=== PATIENT | female | born 1960 | race Caucasian/White ===

== ENCOUNTER 2024-04-07 08:33 | Observation (INO) | payer MEDICARE ==
--- NOTE | 2024-04-07 09:09 | ED ---
General Adult HPI - General Chief complaint: Chest Pain Stated complaint: chest pain Time Seen by Provider: 04/07/24 08:35 Source: patient, RN notes reviewed, old records reviewed Mode of arrival: ambulatory Limitations: no limitations - History of Present Illness Initial comments: This is a 63-year-old female who presents to the emergency department with a past medical history significant for anxiety. Patient states today she was driving down the highway and she had some pain going down her left arm she became a little short of breath which she attributes to her anxiety. Patient also states she started having some chest pressure that lasted less than a minute. Patient states the chest pressure seems to come and go. Patient states that the chest pain does seem to radiate to her back. Patient states that she does have back pain normally. Patient also states she was mildly nauseous. Patient denies any chest pain currently she denies shortness of breath and states that this happened to her a few years back and they determined it was an xiety. Patient denies any history of high blood pressure or smoking. Patient does have a history of diabetes and high cholesterol and does have a very strong family history with her father having from heart attack at 53. Patient states she has been under quite a bit of stress over the last 2 weeks because of the in the family. - Related Data Allergies Allergy/AdvReac Type Severity Reaction Status Date / Time pollen extracts Allergy Wheezing Verified 04/07/24 08:38 Review of Systems ROS Statement: Those systems with pertinent positive or pertinent negative responses have been documented in the HPI. ROS Other: All systems not noted in ROS Statement are negative. Past Medical History Past Medical History: Asthma, Diabetes Mellitus Past Surgical History: No Surgical Hx Reported Past Psychological History: Anxiety, Depression Smoking Status: Never smoker Past Alcohol Use History: Occasional Past Drug Use History: Marijuana General Exam - General Exam Comments Initial Comments: GENERAL: Patient is well-developed and well-nourished. Patient is nontoxic and well- hydrated and is in mild distress. ENT: Neck is soft and supple. No significant lymphadenopathy is noted. Oropharynx is clear. Moist mucous membranes. Neck has full range of motion without eliciting any pain. EYES: The sclera were anicteric and conjunctiva were pink and moist. Extraocular movements were intact and pupils were equal round and reactive to light. Eyelids were unremarkable. PULMONARY: Unlabored respirations. Good breath sounds bilaterally. No audible rales rhonchi or wheezing was noted. CARDIOVASCULAR: There is a regular rate and rhythm without any murmurs gallops or rubs. ABDOMEN: Soft and nontender with normal bowel sounds. SKIN: Skin is clear with no lesions or rashes and otherwise unremarkable. NEUROLOGIC: Patient is alert and oriented x3. Cranial nerves II through XII are grossly intact. Motor and sensory are also intact. Normal speech, volume and content. Symmetrical smile. MUSCULOSKELETAL: Normal extremities with adequate strength and full range of motion. LYMPHATICS: No significant lymphadenopathy is noted PSYCHIATRIC: Normal psychiatric evaluation. Limitations: no limitations Course Vital Signs 04/07/24 04/07/24 08:34 10:23 Temperature 98.0 F Pulse Rate 75 73 Respiratory 20 18 Rate Blood Pressure 148/96 124/72 O2 Sat by Pulse 95 Oximetry Medical Decision Making - Medical Decision Making EKG is interpreted by myself but EKG shows a sinus rhythm at 67 bpm parables 140 QRS is 100 QT interval 387 QTc is 403. Patient's EKG shows no ST segment ovation or depression. Was pt. sent in by a medical professional or institution (, PA, PHP CONSULTANT, urgent care, hospital, or correction...) When possible be specific @ -No Did you speak to anyone other than the patient for history (EMS, parent, family, police, friend...)? What history was obtained from this source @ -No Did you review nursing and triage notes (agree or disagree)? Why? @ -I reviewed and agree with nursing and triage notes Were old charts reviewed (outside hosp., previous admission, EMS record, old EKG, old radiological studies, urgent care reports/EKG's, correction records)? Report findings @ -No old charts were reviewed Differential Diagnosis? @ -Differential Chest Pain: Stable Angina, Unstable Angina, STEMI, NSTEMI Aortic Dissection, Pneumothorax, Musculoskeletal, Esophageal Spasm GERD, Cholecystitis, Pancreatitis, Zoster, this is not meant to be an all-inclusive list. EKG interpreted by me (3pts min.). @ -As above X-rays interpreted by me (1pt min.). @ -Chest x-ray shows no acute abnormality CT interpreted by me (1pt min.). @ -None done U/S interpreted by me (1pt. min.). @ -None done What testing was considered but not performed or refused? (CT, X-rays, U/S, labs)? Why? @ -None What meds were considered but not given or refused? Why? @ -None Did you discuss the management of the patient with other professionals (professionals i.e. , PA, PHP CONSULTANT, lab, RT, psych nurse, sexual assault social worker, windows server specialist, teacher, hospital chief financial officer, upper caser)? Give summary @ -[facility] the patient admit the patient wrote admitting orders Was smoking cessation discussed for >3mins.? @ -No Was critical care preformed (if so, how long)? @ -No Were there social determinants of health that impacted care today? How? (Homelessness, low income, unemployed, alcoholism, drug addiction, transportation, low edu. Level, literacy, decrease access to med. care, residential, rehab)? @ -No Was there de-escalation of care discussed even if they declined (Discuss DNR or withdrawal of care, Hospice)? DNR status @ -No What co-morbidities impacted this encounter? (DM, HTN, Smoking, COPD, CAD, Cancer, CVA, ARF, Chemo, Hep., AIDS, mental health diagnosis, sleep apnea, morbid obesity)? @ -Diabetes mellitus Was patient admitted / discharged? Hospital course, mention meds given and route, prescriptions, significant lab abnormalities, going to OR and other pertinent info. @ -Patient's arm pain went away in the emergency department. But with patient's risk factors for high cholesterol diabetes and family history with the patient's current symptoms I felt it prudent to keep the patient in the hospital. [facility] the patient admit the patient wrote admitting orders I consulted cardiology Undiagnosed new problem with uncertain prognosis? @ -No Drug Therapy requiring intensive monitoring for toxicity (Heparin, Nitro, Insulin, Cardizem)? @ -No Were any procedures done? @ -No Diagnosis/symptom? @ -Chest pain Acute, or Chronic, or Acute on Chronic? @ -Acute Uncomplicated (without systemic symptoms) or Complicated (systemic symptoms)? @ -Complicated Side effects of treatment? @ -No Exacerbation, Progression, or Severe Exacerbation? @ -No Poses a threat to life or bodily function? How? (Chest pain, USA, ND, pneumonia, PE, COPD, DKA, ARF, appy, cholecystitis, CVA, Diverticulitis, Homicidal, Suicidal, threat to staff... and all critical care pts) @ -Yes this could lead to an ND and endorgan dysfunction - Lab Data Result diagrams: 04/07/24 09:29 04/07/24 09:29 Lab Results 04/07/24 04/07/24 04/07/24 Range/Units 09:29 09:29 09:29 WBC 6.5 (3.8-10.6) k/uL RBC 5.03 (3.80-5.40) m/uL Hgb 14.8 (11.4-16.0) gm/dL Hct 43.8 (34.0-46.0) % MCV 87.1 (80.0-100.0) fL MCH 29.4 (25.0-35.0) pg MCHC 33.8 (31.0-37.0) g/dL RDW 14.5 (11.5-15.5) % Plt Count 216 (150-450) k/uL MPV 8.7 Neutrophils % 67 % Lymphocytes % 24 % Monocytes % 5 % Eosinophils % 3 % Basophils % 1 % Neutrophils # 4.3 (1.3-7.7) k/uL Lymphocytes # 1.5 (1.0-4.8) k/uL Monocytes # 0.3 (0-1.0) k/uL Eosinophils # 0.2 (0-0.7) k/uL Basophils # 0.0 (0-0.2) k/uL PT 9.9 L (10.0-12.5) sec INR 0.9 (<1.2) APTT 22.7 (22.0-30.0) sec Sodium 138 (137-145) mmol/L Potassium 4.5 (3.5-5.1) mmol/L Chloride 107 (98-107) mmol/L Carbon Dioxide 18 L (22-30) mmol/L Anion Gap 13 mmol/L BUN 22 H (7-17) mg/dL Creatinine 0.64 (0.52-1.04) mg/dL Est GFR (CKD-EPI)AfAm >90 (>60 ml/min/1.73 sqM) Est GFR (CKD-EPI)NonAf >90 (>60 ml/min/1.73 sqM) Glucose 264 H (74-99) mg/dL Calcium 9.7 (8.4-10.2) mg/dL Magnesium 1.8 (1.6-2.3) mg/dL Total Bilirubin 0.6 (0.2-1.3) mg/dL AST 22 (14-36) U/L ALT 20 (4-34) U/L Alkaline Phosphatase 76 (38-126) U/L Troponin I (0.000-0.034) ng/mL Total Protein 6.7 (6.3-8.2) g/dL Albumin 4.1 (3.5-5.0) g/dL 04/07/24 Range/Units 09:29 WBC (3.8-10.6) k/uL RBC (3.80-5.40) m/uL Hgb (11.4-16.0) gm/dL Hct (34.0-46.0) % MCV (80.0-100.0) fL MCH (25.0-35.0) pg MCHC (31.0-37.0) g/dL RDW (11.5-15.5) % Plt Count (150-450) k/uL MPV Neutrophils % % Lymphocytes % % Monocytes % % Eosinophils % % Basophils % % Neutrophils # (1.3-7.7) k/uL Lymphocytes # (1.0-4.8) k/uL Monocytes # (0-1.0) k/uL Eosinophils # (0-0.7) k/uL Basophils # (0-0.2) k/uL PT (10.0-12.5) sec INR (<1.2) APTT (22.0-30.0) sec Sodium (137-145) mmol/L Potassium (3.5-5.1) mmol/L Chloride (98-107) mmol/L Carbon Dioxide (22-30) mmol/L Anion Gap mmol/L BUN (7-17) mg/dL Creatinine (0.52-1.04) mg/dL Est GFR (CKD-EPI)AfAm (>60 ml/min/1.73 sqM) Est GFR (CKD-EPI)NonAf (>60 ml/min/1.73 sqM) Glucose (74-99) mg/dL Calcium (8.4-10.2) mg/dL Magnesium (1.6-2.3) mg/dL Total Bilirubin (0.2-1.3) mg/dL AST (14-36) U/L ALT (4-34) U/L Alkaline Phosphatase (38-126) U/L Troponin I <0.012 (0.000-0.034) ng/mL Total Protein (6.3-8.2) g/dL Albumin (3.5-5.0) g/dL Disposition Clinical Impression: Chest pain Disposition: ADMITTED IP TO THIS HOSP Referrals: Nonstaff,Physician [Primary Care Provider] - 1-2 days Time of Disposition: 10:33
[2024-04-07] MEDS: LORazepam 2 MG/ML INJ IV STA (09:37)
[2024-04-07 09:39] LABS: Basophils % (A) 1 %; Eosinophils # (A) 0.2 k/uL (0-0.7); Eosinophils % (A) 3 %; HCT 43.8 % (34.0-46.0); HGB 14.8 gm/dL (11.4-16.0); Lymphocytes # (A) 1.5 k/uL (1.0-4.8); Lymphocytes % (A) 24 %; MCH 29.4 pg (25.0-35.0); MCHC 33.8 g/dL (31.0-37.0); MCV 87.1 fL (80.0-100.0); Mean Platelet Volume 8.7; Monocytes # (A) 0.3 k/uL (0-1.0); Monocytes % (A) 5 %; Neutrophils # (A) 4.3 k/uL (1.3-7.7); Neutrophils % (A) 67 %; Platelet Count 216 k/uL (150-450); RBC 5.03 m/uL (3.80-5.40); RDW 14.5 % (11.5-15.5); WBC 6.5 k/uL (3.8-10.6)
[2024-04-07 09:48] LABS: INR 0.9 (<1.2); Partial Thromboplastin Time 22.7 sec (22.0-30.0); Prothrombin Time 9.9 sec (10.0-12.5)
[2024-04-07 09:50] LABS: ALT 20 U/L (4-34); AST 22 U/L (14-36); African American GFR (CKD) >90 (>60 ml/min/1.73 sqM); Albumin 4.1 g/dL (3.5-5.0); Alkaline Phosphatase 76 U/L (38-126); Anion Gap 13 mmol/L; Blood Urea Nitrogen 22 mg/dL (7-17); Calcium 9.7 mg/dL (8.4-10.2); Carbon Dioxide 18 mmol/L (22-30); Chloride 107 mmol/L (98-107); Glucose 264 mg/dL (74-99); Magnesium 1.8 mg/dL (1.6-2.3); Non-African American GFR(CKD) >90 (>60 ml/min/1.73 sqM); Potassium 4.5 mmol/L (3.5-5.1); Sodium 138 mmol/L (137-145); Total Bilirubin 0.6 mg/dL (0.2-1.3); Total Protein 6.7 g/dL (6.3-8.2)
--- NOTE | 2024-04-07 09:55 | XR ---
EXAMINATION TYPE: XR chest 2V DATE OF EXAM: 04/07/2024 COMPARISON: NONE HISTORY: Shortness of breath TECHNIQUE: Frontal and lateral views of the chest are obtained. FINDINGS: Scattered senescent parenchymal changes noted. No evidence for infiltrate. No evidence for atelectasis. Heart size is stable. Mediastinal structures are stable and grossly unremarkable. No evidence for hilar prominence. Degenerative changes dorsal spine. IMPRESSION: 1. No evidence for acute pulmonary disease.
[2024-04-07] MEDS ORDERED: NITROGLYCERIN SL TABS 0.4 MG TAB SUBLINGUAL PRN (10:33)
--- NOTE | 2024-04-07 12:10 | P.HPIM ---
History of Present Illness This is a pleasant 63 years old female with past medical history of asthma and diabetes mellitus anxiety and depression Presents because of chest pain radiating to her left arm and back started this morning about 8/10 in severity, currently completely resolved 0//explain [facility] like current a pinched nerve No precipitating factors but Ativan received in emergency room help to take it away She denies any change in urine or bowel habits. No fever or chills. No headache dizziness weakness numbness Patient denies smoking cigarettes, she drinks alcohol about 3 times per week and she smokes marijuana twice per month Patient is hemodynamically stable She has unremarkable CBC, BMP liver enzymes Troponin is negative less than 0.012. Chest x-ray is negative for acute process EKG showing sinus rhythm at [address]-T changes Review of Systems Review of systems CONSTITUTIONAL: No fever, no malaise, no fatigue. HEENT: No recent visual problems or hearing problems. Denied any sore throat. CARDIOVASCULAR: No orthopnea, PND, no palpitations, no syncope. PULMONARY: No shortness of breath, no cough, no hemoptysis. GASTROINTESTINAL: No diarrhea, no nausea, no vomiting, no abdominal pain. Normoactive bowel sounds. NEUROLOGICAL: No headaches, no weakness, no numbness. HEMATOLOGICAL: Denies any bleeding or petechiae. GENITOURINARY: Denies any burning micturition, frequency, or urgency. MUSCULOSKELETAL/RHEUMATOLOGICAL: Denies any joint pain, swelling, or any muscle pain. ENDOCRINE: Denies any polyuria or polydipsia. Past Medical History Past Medical History: Asthma, Diabetes Mellitus Past Surgical History: No Surgical Hx Reported Past Psychological History: Anxiety, Depression Smoking Status: Never smoker Past Alcohol Use History: Occasional Past Drug Use History: Marijuana Medications and Allergies Home Medications Medication Instructions Recorded Confirmed Type Dapagliflozin Propanediol [Farxiga] 10 mg PO DAILY 04/07/24 04/07/24 History Meloxicam [Mobic] 15 mg PO DAILY 04/07/24 04/07/24 History Montelukast [Singulair] 10 mg PO DAILY 04/07/24 04/07/24 History Rosuvastatin Calcium [Crestor] 5 mg PO DAILY 04/07/24 04/07/24 History Sertraline [Zoloft] 100 mg PO DAILY 04/07/24 04/07/24 History Allergies Allergy/AdvReac Type Severity Reaction Status Date / Time pollen extracts Allergy Wheezing Verified 04/07/24 11:22 Physical Exam Vitals: Vital Signs Temp Pulse Resp BP Pulse Ox 04/07/24 10:23 73 18 124/72 04/07/24 08:34 98.0 F 75 20 148/96 95 Intake and Output 04/06/24 04/07/24 04/07/24 22:59 06:59 14:59 Other: Weight 122.47 kg GENERAL: The patient is alert and oriented x3, not in any acute distress. Well developed, well nourished. HEENT: Pupils are round and equally reacting to light. EOMI. No scleral icterus. No conjunctival pallor. Normocephalic, atraumatic. No pharyngeal erythema. No thyromegaly. CARDIOVASCULAR: S1 and S2 present. No murmurs, rubs, or gallops. PULMONARY: Chest is clear to auscultation, no wheezing , no crackles. ABDOMEN: Soft, nontender, nondistended, normoactive bowel sounds. No palpable organomegaly. MUSCULOSKELETAL: No joint swelling or deformity. EXTREMITIES: No cyanosis, clubbing, or pedal edema. NEUROLOGICAL: Gross neurological examination did not reveal any focal deficits. SKIN: No rashes. no petechiae. Results CBC & Chem 7: 04/07/24 09:29 04/07/24 09:29 Labs: Abnormal Lab Results - Last 24 Hours (Table) 04/07/24 04/07/24 Range/Units 09:29 09:29 PT 9.9 L (10.0-12.5) sec Carbon Dioxide 18 L (22-30) mmol/L BUN 22 H (7-17) mg/dL Glucose 264 H (74-99) mg/dL Assessment and Plan Assessment: Chest pain most likely musculoskeletal, resolved. Rule out cardiac causes Obesity with BMI of 46.3 Diabetes mellitus History of anxiety and depression, not an active issue Asthma not an active issue Plan: Serial troponin Cardiology consult Continue with aspirin Resume home medication Further recommendation based on the clinical course GI and DVT prophylaxis Prognosis guarded
[2024-04-07] MEDS: NITROGLYCERIN OINT 1 INCH/GM PACKET TOPICAL SCH (12:19)
[2024-04-07] MEDS: ASPIRIN 81 MG PO STA (12:19)
--- NOTE | 2024-04-07 16:45 | P.CRDCN ---
History of Present Illness History of present illness: This is Dr. Couch dictating a consult on this patient The patient was interviewed and examined IMPRESSION / ASSESSMENT: Severe chest discomfort associate with shortness of breath Type 2 diabetes hemoglobin A1c greater than 9 On a low-dose statin at home 5 mg of rosuvastatin She takes Farxiga for diabetes Denies hypertension PLAN: 3 serial cardiac enzymes, repeat EKG during a pain-free state there is already ordered 2D echo and Doppler study Lipid panel hemoglobin A1c Start atorvastatin 40 mg p.o. daily Start lisinopril 5 mg p.o. daily HPI 63-year-old female who recently had a in the family few weeks back came in complaining of chest discomfort pain going down her left arm shortness of breath She continued to have chest pressure off and on and that was radiating through into her back She is diabetic hemoglobin A1c is greater than 9 Father from a heart attack at the age of 53 There was a recent in the family of the last 2 weeks ROS: No fever chills or rigors, no cough, phlegm or expectoration, no nausea, vomiting or diarrhea, no hematuria, dysuria, no musculoskeletal complaints, no strokes or seizures, no skin lesions. EXAMINATION: On examination blood pressure 148/96, 134/72 mmHg pulse rate in the 70s afebrile Breath sounds are clear no rhonchi no crackles Heart sounds are normal Abdomen soft Lungs are clear REVIEW OF LABS, ECG & MEDICAL DATA White count normal, hemoglobin 14.8, platelet count 216,000 Sodium 138, potassium 4.5 BUN 22 creatinine 0.64 2 troponins are normal Twelve-lead EKG shows sinus rhythm normal SD narrow QRS normal ST segments during chest discomfort Repeat twelve-lead EKG when she was not experiencing chest discomfort later on showed sinus rhythm with normal SD narrow QRS normal ST segments completely unchanged Chest x-ray normal Past Medical History Past Medical History: Asthma, Diabetes Mellitus Past Surgical History: No Surgical Hx Reported Past Psychological History: Anxiety, Depression Smoking Status: Never smoker Past Alcohol Use History: Occasional Past Drug Use History: Marijuana Medications and Allergies Home Medications Medication Instructions Recorded Confirmed Type Dapagliflozin Propanediol [Farxiga] 10 mg PO DAILY 04/07/24 04/07/24 History Meloxicam [Mobic] 15 mg PO DAILY 04/07/24 04/07/24 History Montelukast [Singulair] 10 mg PO DAILY 04/07/24 04/07/24 History Rosuvastatin Calcium [Crestor] 5 mg PO DAILY 04/07/24 04/07/24 History Sertraline [Zoloft] 100 mg PO DAILY 04/07/24 04/07/24 History Allergies Allergy/AdvReac Type Severity Reaction Status Date / Time pollen extracts Allergy Wheezing Verified 04/07/24 11:22 Physical Exam Vitals: Vital Signs Temp Pulse Resp BP Pulse Ox 04/07/24 12:22 73 16 129/87 04/07/24 10:23 73 18 124/72 04/07/24 08:34 98.0 F 75 20 148/96 95 Intake and Output 04/07/24 04/07/24 04/07/24 06:59 14:59 22:59 Other: Weight 122.47 kg Results 04/07/24 09:29 04/07/24 09:29 Cardiac Enzymes 04/07/24 04/07/24 04/07/24 Range/Units 09:29 09:29 12:42 AST 22 (14-36) U/L Troponin I <0.012 <0.012 (0.000-0.034) ng/mL 04/07/24 Range/Units 15:11 AST (14-36) U/L Troponin I <0.012 (0.000-0.034) ng/mL Coagulation 04/07/24 Range/Units 09:29 PT 9.9 L (10.0-12.5) sec APTT 22.7 (22.0-30.0) sec CBC 04/07/24 Range/Units 09:29 WBC 6.5 (3.8-10.6) k/uL RBC 5.03 (3.80-5.40) m/uL Hgb 14.8 (11.4-16.0) gm/dL Hct 43.8 (34.0-46.0) % Plt Count 216 (150-450) k/uL Comprehensive Metabolic Panel 04/07/24 Range/Units 09:29 Sodium 138 (137-145) mmol/L Potassium 4.5 (3.5-5.1) mmol/L Chloride 107 (98-107) mmol/L Carbon Dioxide 18 L (22-30) mmol/L BUN 22 H (7-17) mg/dL Creatinine 0.64 (0.52-1.04) mg/dL Glucose 264 H (74-99) mg/dL Calcium 9.7 (8.4-10.2) mg/dL AST 22 (14-36) U/L ALT 20 (4-34) U/L Alkaline Phosphatase 76 (38-126) U/L Total Protein 6.7 (6.3-8.2) g/dL Albumin 4.1 (3.5-5.0) g/dL Current Medications Generic Name Dose Route Start Last Admin Trade Name Freq PRN Reason Stop Dose Admin Aspirin 325 mg 04/08/24 09:00 Aspirin 325 Mg Tab PO DAILY DAVID Nitroglycerin 0.4 mg 04/07/24 10:33 Nitroglycerin Sl Tabs 0.4 Mg Tab SUBLINGUAL Q5M PRN Chest Pain Nitroglycerin 1 inch 04/07/24 12:00 04/07/24 12:19 Nitroglycerin Oint 1 Inch/Gm Packet TOPICAL 1 inch Q6HR [facility] Administration Intake and Output 04/07/24 04/07/24 04/07/24 06:59 14:59 22:59 Other: Weight 122.47 kg Patient Weight 04/08/24 06:59 Weight 122.47 kg 04/07/24 09:29 04/07/24 09:29
[2024-04-07] MEDS: ATORVASTATIN 40 MG TAB PO SCH (18:04)
[2024-04-07] MEDS: lisinopriL 5 MG TAB PO SCH (18:05)
[2024-04-08] MEDS ORDERED: ASPIRIN 325 MG TAB PO SCH (09:00)
[2024-04-08 10:52] LABS: Chol/HDL Ratio 4.16 Ratio; LDL Cholesterol,Calculated 122.7 mg/dL (0.0-131.0)
[2024-04-08] MEDS: ASPIRIN 81 MG PO SCH (11:02)
--- NOTE | 2024-04-08 12:45 | P.PN ---
Progress Note - Text Patient is doing well. She has been ambulating around the room She has had no further chest discomfort No dizziness no lightheadedness Yesterday she hardly ate anything and got only 1 sandwich and was virtually fasting all day in the ER Her blood pressure is 90/65 mmHg. Lisinopril 5 mg p.o. daily was held because of the low blood pressure I had a detailed discussion with her regarding the cardiovascular preventative management in a diabetic patient. She has been diabetic for about 1/2 years. Prior to that she was prediabetic Hemoglobin A1c is 9.0 Hematocrit 44 platelet count 216,000 Triglycerides 188 total cholesterol 211 LDL 122, HDL 50 Troponins normal Glucose 264 Hemoglobin A1c 9.4 Normal liver function Impression Patient presented with atypical chest discomfort with normal EKG during chest discomfort and an EKG that showed exactly similar when she was not having pain 3 cardiac enzymes normal Uncontrolled diabetes type 2 with a hemoglobin A1c is 9.4 Taking very small doses of rosuvastatin 5 mg daily, not on an TAQUERIA or ARB Suggest Diabetes control and management per primary team 2D echo is normal preserved LV systolic function Reduce the dose of lisinopril to 2.5 mg p.o. daily Patient may go home and follow-up with me in the next 24 to 48 hours if she is asymptomatic. 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
--- NOTE | 2024-04-08 12:59 | CA ---
Transthoracic Echo Report Name: Chelo Naik Age: 63 Gender: F : 1960 Exam Date: 04/07/2024 17:35 Exam Location: [facility] Ht (in): 64 Wt (lb): 270 Ordering Physician: Andres Couch MD ([id number]) Attending/Referring Phys: [employer] Hannah Laureano, LORRI Procedure CPT: Indications: CP, DM, Cardiac Hx: Technical Quality: Poor, Technically difficult study Contrast 1: Definity Total Dose (mL): 2 Contrast 2: Total Dose (mL): MEASUREMENTS (Male / Female) Normal Values 2D ECHO LV Diastolic Diameter PLAX 3.0 cm 4.2 - 5.9 / 3.9 - 5.3 cm LV Systolic Diameter PLAX 1.8 cm IVS Diastolic Thickness 1.2 cm 0.6 - 1.0 / 0.6 - 0.9 cm LVPW Diastolic Thickness 1.3 cm 0.6 - 1.0 / 0.6 - 0.9 cm LV Relative Wall Thickness 0.8 RV Internal Dim ED PLAX 1.6 cm LA Systolic Diameter LX 2.7 cm 3.0 - 4.0 / 2.7 - 3.8 cm M-MODE Aortic Root Diameter MM 2.6 cm LA Systolic Diameter MM 2.5 cm LA Ao Ratio MM 1.0 AV Cusp Separation MM 1.7 cm DOPPLER AV Peak Velocity 153.9 cm/s AV Peak Gradient 9.5 mmHg Mitral E Point Velocity 89.0 cm/s Mitral A Point Velocity 90.9 cm/s Mitral E to A Ratio 1.0 MV Deceleration Time 275.4 ms MV E' Velocity 8.9 cm/s Mitral E to MV E' Ratio 10.0 FINDINGS Left Ventricle Left ventricular ejection fraction is estimated at 55-60 %. Mildly increased septal wall thickness. Moderately increased posterior wall thickness. Normal left ventricular wall motion. No obvious regional wall motion abnormalities. Left ventricular cavity size normal. Right Ventricle Normal right ventricular size and function. Unable to estimate the right ventricular systolic pressure. Right Atrium Normal right atrial size. Left Atrium Normal left atrial size. Mitral Valve Structurally normal mitral valve. Trace mitral regurgitation. No mitral stenosis. Aortic Valve Trileaflet aortic valve. No aortic valve stenosis or regurgitation. Tricuspid Valve Structurally normal tricuspid valve. Trace tricuspid regurgitation. No tricuspid stenosis. Pulmonic Valve Structurally normal pulmonic valve. Trace pulmonic regurgitation. No pulmonic stenosis. Pericardium No pericardial or pleural effusion. Aorta Normal size aortic root and proximal ascending aorta. CONCLUSIONS Diagnosis Recurrent chest discomfort, type 2 diabetes Preserved LV send systolic function Normal RV size and function Previewed by: Dr. Andres Couch MD (Electronically Signed) Final Date: 08 April 2024 12:59
[2024-04-08 15:50] VITALS: BMI 46.3
[2024-04-08 16:00] VITALS: RESP 17
[2024-04-08 16:01] VITALS: BP 111/71; PULSE 74; TEMP 97.8
--- NOTE | 2024-05-02 23:15 | P.DS ---
Providers Date of admission: 04/07/24 10:34 Attending physician: Adonis Purcell Consults: 04/07/24 10:34 Consult Physician Urgent Consulting Provider: [facility] Consult Reason/Comments: Chest pain Do you want consulting provider notified?: Yes Primary care physician: Physician Nonstaff Hospital Course: Final Diagnosis Chest pain most likely musculoskeletal, resolved. Rule out cardiac causes Obesity with BMI of 46.3 Diabetes mellitus type 2 A1C 9.0. History of anxiety and depression, not an active issue Asthma not an active issue Discharge Disposition Patient is stable for discharge home has been cleared by cardiology. Patient has been started on aspirin 81 mg daily as well as lisinopril 10 mg daily. Hospital Course This is a pleasant 63 years old female with past medical history of asthma and diabetes mellitus anxiety and depression. Presents because of chest pain radiating to her left arm and back started this morning about 8/10 in severity, currently completely resolved 0/10. Merlin like current a pinched nerve. No precipitating factors but Ativan received in emergency room help to take it away. She denies any change in urine or bowel habits. No fever or chills. No headache dizziness weakness numbness Patient denies smoking cigarettes, she drinks alcohol about 3 times per week and she smokes marijuana twice per month. Blood work unremarkable, Troponin normal. Chest xray negative for acute process. EKG normal sinus rhythm no significant ST or T wave changes. Admitted for cardiac consultation. Patient was monitored. Echocardiogram reveals preserved LV systolic function, normal RV size and systolic function. Patient to continue on farxiga and has been placed on lisinopril indicated in diabetic patients. No longer having any chest pain and cleared for disharge. Please see medication reconciliation for a list of current medications. Thank you for allowing us to participate in the care of this patient. The impression and plan of care has been dictated by Parisa Bean Nurse Practitioner as directed. Dr. Latasha MD I have performed a history and physical examination and medical decision making of this patient, discussed the same with the dictator, and agree with the dictators assessment and plan as written, documented as a scribe. Based on total visit time, I have performed more than 50% of this visit. Patient Condition at Discharge: Stable Plan - Discharge Summary New Discharge Prescriptions: New Aspirin 81 mg PO DAILY #30 tab lisinopriL [Zestril] 2.5 mg PO DAILY #30 tab Continue Sertraline [Zoloft] 100 mg PO DAILY Montelukast [Singulair] 10 mg PO DAILY Rosuvastatin Calcium [Crestor] 5 mg PO DAILY Meloxicam [Mobic] 15 mg PO DAILY Dapagliflozin Propanediol [Farxiga] 10 mg PO DAILY Discharge Medication List Dapagliflozin Propanediol [Farxiga] 10 mg PO DAILY 04/07/24 [History] Meloxicam [Mobic] 15 mg PO DAILY 04/07/24 [History] Montelukast [Singulair] 10 mg PO DAILY 04/07/24 [History] Rosuvastatin Calcium [Crestor] 5 mg PO DAILY 04/07/24 [History] Sertraline [Zoloft] 100 mg PO DAILY 04/07/24 [History] Aspirin 81 mg PO DAILY #30 tab 04/08/24 [Rx] lisinopriL [Zestril] 2.5 mg PO DAILY #30 tab 04/08/24 [Rx] Follow up Appointment(s)/Referral(s): Andres Couch MD [STAFF PHYSICIAN] - 1 Week Nonstaff,Physician [Primary Care Provider] - 1-2 days Rosalba Garcia MD [REFERRING] - 1-2 Days Patient Instructions/Handouts: Chest Pain (DC) Discharge Disposition: HOME SELF-CARE
== END 2024-04-08 16:10 | disposition home or self-care (01) ==
LOC: EC 08:33 → 6NMEDSUR 10:34
PROVIDERS: ADMIT Hospitalist; ATTEND Hospitalist
DX: R07.89 Other chest pain (principal); E11.65 Type 2 diabetes mellitus with hyperglycemia; M79.602 Pain in left arm; M54.9 Dorsalgia, unspecified; E78.00 Pure hypercholesterolemia, unspecified; J45.909 Unspecified asthma, uncomplicated; E66.9 Obesity, unspecified; Z68.42 Body mass index [BMI] 45.0-49.9, adult; I95.9 Hypotension, unspecified; F12.90 Cannabis use, unspecified, uncomplicated; F41.9 Anxiety disorder, unspecified; F32.A Depression, unspecified; Z79.84 Long term (current) use of oral hypoglycemic drugs; Z79.1 Long term (current) use of non-steroidal anti-inflammatories (NSAID); Z79.899 Other long term (current) drug therapy; Z91.048 Other nonmedicinal substance allergy status; Z82.49 Family history of ischemic heart disease and other diseases of the circulatory system
CPT/HCPCS: 96374; 99285; 36415; 93005 ×2; 85379; 80061; 80053; 83735; 84484; 85025; 85610; 85730; 83036; 71046; G0378 ×2; C8929; J2060; Q9957; 93306